=== PATIENT | female | born 1990 | race African-American/Black ===

== ENCOUNTER 2020-05-23 23:46 | Outpatient (CLI) | payer SELFPAY ==
[2020-05-24 00:40] LABS: APPEARANCE,URINE CLOUDY; BILIRUBIN,URINE NEGATIVE (NEGATIVE); COLOR,URINE YELLOW; GLUCOSE, URINE NEGATIVE (NEGATIVE); KETONES,URINE NEGATIVE (NEGATIVE); LEUKOCYTE ESTERASE,URINE LARGE (NEGATIVE); NITRITE,URINE POSITIVE (NEGATIVE); PROTEIN,URINE NEGATIVE (NEGATIVE); URINE SPECIFIC GRAVITY 1.011
[2020-05-24 00:45] LABS: URINE AMPHETAMINES SCREEN NEGATIVE; URINE BARBITURATES SCREEN NEGATIVE; URINE BENZODIAZEPINES SCREEN NEGATIVE; URINE COCAINE SCREEN NEGATIVE; URINE MARIJUANA (THC) SCREEN NEGATIVE; URINE METHADONE SCREEN NEGATIVE; URINE PHENCYCLIDINE SCREEN NEGATIVE
--- NOTE | 2020-05-24 00:56 | RADIOLOGY REPORT (SQ) ---
Ultrasound OB limited on 05/24/2020 at 12:40 AM CLINICAL INDICATION: , spotting, evaluate cervical length COMPARISON: None FINDINGS: Limited sonographic imaging is performed throughout the pelvis by transabdominal approach only, both transverse and sagittal images are obtained. Cervical length measures approximately 3.3 cm and the cervix is closed. Single living intrauterine fetus is noted in cephalic presentation. Placenta is anterior in location with no evidence of placenta previa or abruption. Positive cardiac activity is noted with a heart rate of 157 bpm. Normal amount of amniotic fluid is noted with maximum vertical pocket measuring 4.2 cm and the amniotic fluid index measuring 14 cm. No gross abnormality is noted on limited imaging. measurements for dates were not performed. IMPRESSION: Single living intrauterine fetus in cephalic presentation with no acute abnormality noted.
[2020-05-24] MEDS ORDERED: CEFTRIAXONE INJ 1000 MG VIAL IM ONE (01:22)
[2020-05-24] MEDS ORDERED: LIDOCAINE 1% INJ-PF (10 MG/ML) 30 ML SDV IM ONE (01:22)
[2020-05-24] MEDS ORDERED: CEFTRIAXONE INJ 1000 MG VIAL ONE (01:30)
[2020-05-24] MEDS ORDERED: LIDOCAINE 1% INJ-PF (10 MG/ML) 30 ML SDV ONE (01:30)
== END 2020-05-24 02:24 | disposition home or self-care (01) ==
LOC: LC 23:46
PROVIDERS: ATTEND Obstetrics & Gynecology
DX: O46.92 Antepartum hemorrhage, unspecified, second trimester (principal); Z3A.20 20 weeks gestation of pregnancy
CPT/HCPCS: 86900; 86901; 36415; 86850; 81001; 80307; 76815; 59899; J2790; J3490; J0696

== ENCOUNTER 2020-08-22 15:46 | Emergency (ER) | payer MEDICAID ==
[2020-08-22 16:38] VITALS: BP 110/67
[2020-08-22] MEDS ORDERED: IPRATROPIUM/ALBUTEROL 0.5-2.5 MG/3 ML AMPUL NEB ONE (16:57)
--- NOTE | 2020-08-22 16:59 | ER Document Report ---
ED Respiratory Problem - General Chief Complaint: Shortness Of Breath Stated Complaint: SHORTNESS OF BREATH Time Seen by Provider: 08/22/20 16:24 Primary Care Provider: SURINDER DONG MD [ACTIVE STAFF] - Follow up as needed Mode of Arrival: Ambulatory Information source: Patient Notes: Patient presents with a 4-day history of cough, sneezing and congestion. Gladys ent states that multiple contacts in her household are sick as well. Patient states that her child was exposed to someone who was positive for Covid and her entire family is getting Covid tested tomorrow. Patient is currently 34 weeks G4, P3. Patient denies any fever. Patient denies any urinary symptoms. Patient denies any vaginal bleeding or discharge. Patient does complain of some cough and shortness of breath. - HPI Patient complains to provider of: Cough, Short of breath. No: Asthma Onset: Other - 4 days Duration: Worse/persistent Pain Level: Denies Context: denies: Hx asthma, Recent long distance trvl, Recent immobilization, Recent surgery, Smoker Cough: Nonproductive Associated symptoms: Congestion, Cough, Short of breath, Wheezing. denies: Chest pain/discomfort, Fever Similar symptoms previously: No Recently seen / treated by doctor: No - Related Data Allergies/Adverse Reactions: No Known Allergies Allergy (Verified 08/22/20 16:30) Past Medical History - General Information source: Patient - Social History Smoking Status: Former Smoker - Quit a few months ago Frequency of alcohol use: None Drug Abuse: None Occupation: None Lives with: Family Family History: Reviewed & Not Pertinent Patient has homicidal ideation: No - Medical History Medical History: Negative Surgical Hx: Negative Review of Systems - Review of Systems Constitutional: No symptoms reported. denies: Fever EENT: Nose congestion, Nose discharge, Throat pain Cardiovascular: No symptoms reported. denies: Chest pain, Palpitations Respiratory: Cough, Short of breath, Wheezing. denies: Hurts to breathe, Hemoptysis Gastrointestinal: No symptoms reported. denies: Abdominal pain, Diarrhea, Nausea, Vomiting Genitourinary: No symptoms reported. denies: Dysuria, Flank pain Female Genitourinary: . denies: Vaginal discharge, Vaginal bleeding Musculoskeletal: No symptoms reported. denies: Back pain, Leg swelling Skin: No symptoms reported Hematologic/Lymphatic: No symptoms reported Neurological/Psychological: No symptoms reported. denies: Headaches Physical Exam - Vital signs Vitals: Temp Pulse Resp BP Pulse Ox 98.6 F 105 H 20 110/67 100 08/22/20 16:30 08/22/20 16:30 08/22/20 16:30 08/22/20 16:30 08/22/20 16:30 - General General appearance: Appears well, Alert In distress: None - HEENT Head: Normocephalic, Atraumatic Eyes: Normal Conjunctiva: Normal Ears: Normal External canal: Normal Nasal: Clear rhinorrhea Mouth/Lips: Normal Mucous membranes: Normal. No: Dry Pharynx: Erythema. No: Exudate Neck: Normal, Supple. No: Lymphadenopathy, Meningismus - Respiratory Respiratory status: Tachypnea Chest status: Nontender Breath sounds: Nonproductive cough, Wheezing Chest palpation: Normal - Cardiovascular Rhythm: Tachycardia Heart sounds: S1 appreciated, S2 appreciated - Abdominal Inspection: Gravid female - Back Back: Normal, Nontender. No: CVA tenderness - Extremities General upper extremity: Normal inspection, Normal ROM General lower extremity: Normal inspection, Normal ROM - Neurological Neuro grossly intact: Yes Cognition: Normal [place] Coma Scale Eye Opening: Spontaneous [place] Coma Scale Verbal: Oriented [place] Coma Scale Motor: Obeys Commands Manny Coma Scale Total: 15 - Psychological Associated symptoms: Normal affect, Normal mood - Skin Skin Temperature: Warm Skin Moisture: Dry Skin Color: Normal Course - Re-evaluation Re-evalutation: 08/22/20 18:21 Patient reports that she is breathing much easier and she feels better after the breathing treatment at this time. Wheezing has completely resolved at this time. Patient mildly tachycardic with a heart rate of 102 with pulse ox of 100% at this time. Chest x-ray reviewed, no pneumonia noted, patient's rapid strep and rapid flu test both are negative. Covid test is pending at this time. Patient denies any history of asthma. Patient does report that entire household is sick with similar upper respiratory symptoms and are going tomorrow to be Covid tested. Consulted with Dr. Dong who is on-call for OB regarding patient presentation and plan of care at this time. She agrees with plan for steroids as well as inhaled bronchodilator. Discussed choice of steroid, she does state that Decadron would be okay at this point in her as she is not in her first trimester. 08/22/20 18:23 The patient was evaluated during the global Covid 19 pandemic, and that diagnosis was suspected/considered upon their initial presentation. Their evaluation, treatment and testing was consistent with current guidelines for patients who present with complaints or symptoms that may be related to Covid 19. Patient presents with upper respiratory symptoms worrisome for possible Covid 19. Patient does not have emergency worrying symptoms such as difficulty breathing, shortness of breath, chest pain, pressure, confusion or cyanosis. Patient appears suitable for discharge as they are not of an advanced age, do not have any chronic medical conditions such as diabetes, CAD, immune deficiency, chronic lung disease or chronic kidney disease. Patient is nontoxic in appearance. Good return precautions have been discussed with patient, patient verbalized understanding and is agreeable with discharge plan of care at this time. - Vital Signs Vital signs: Temp Pulse Resp BP Pulse Ox 98.6 F 105 H 20 110/67 100 08/22/20 16:30 08/22/20 16:30 08/22/20 16:30 08/22/20 16:30 08/22/20 16:30 - Laboratory Laboratory results interpreted by me: Labs- All tests 24 hr 08/22/20 08/22/20 17:06 17:06 Influenza A (Rapid) NEGATIVE Influenza B (Rapid) NEGATIVE Group A Strep Rapid NEGATIVE - Diagnostic Test Radiology reviewed: Image reviewed, Reports reviewed Discharge - Discharge Clinical Impression: Encounter for screening laboratory testing for COVID-19 virus, Wheezing Upper respiratory infection Qualifiers: URI type: unspecified URI Qualified Code(s): J06.9 - Acute upper respiratory infection, unspecified Condition: Stable Disposition: HOME, SELF-CARE Instructions: COVID-19 Guidance for Persons Under Investigation, Inhaled Bronchodilators ([facility]), Upper Respiratory Illness ([facility]) Additional Instructions: Return immediately for any new or worsening symptoms: Shortness of breath, chest pain, fever, difficulty breathing, or any concerning symptoms Followup with your primary care provider, call tomorrow to make a followup appointment Covid test is pending, home quarantine as per instructions Prescriptions: Dexamethasone [Decadron] 6 mg PO DAILY #7 tablet Inhaler,Assist Device,Accesory [Optichamber] 1 each MC Q4 PRN #1 each PRN Reason: Albuterol Sulfate [Proair Hfa Inhalation Aerosol 8.5 gm Mdi] 2 puff IH Q4 PRN #1 mdi PRN Reason: Referrals: SURINDER DONG MD [ACTIVE STAFF] - Follow up as needed
[2020-08-22 18:02] LABS: A TYPE INFLUENZA AG NEGATIVE (NEGATIVE); B INFLUENZA AG NEGATIVE (NEGATIVE)
--- NOTE | 2020-08-22 18:07 | RADIOLOGY REPORT (SQ) ---
EXAM DESCRIPTION: CHEST SINGLE VIEW IMAGES COMPLETED DATE/TIME: 08/22/2020 5:22 pm REASON FOR STUDY: cough, sob COMPARISON: None. EXAM PARAMETERS: NUMBER OF VIEWS: One view. TECHNIQUE: Single frontal radiographic view of the chest acquired. RADIATION DOSE: NA LIMITATIONS: None. FINDINGS: LUNGS AND PLEURA: No opacities, masses or pneumothorax. No pleural effusion. MEDIASTINUM AND HILAR STRUCTURES: No masses. Contour normal. HEART AND VASCULAR STRUCTURES: Heart normal in size. Normal vasculature. BONES: No acute findings. HARDWARE: None in the chest. OTHER: No other significant finding. IMPRESSION: NO ACUTE RADIOGRAPHIC FINDING IN THE CHEST. TECHNICAL DOCUMENTATION: JOB ID: [id number] 2010 [employer]- All Rights Reserved Reading location - IP/workstation name: [email or web address]
[2020-08-22] MEDS ORDERED: DEXAMETHASONE 4 MG TABLET PO ONE (18:28)
== END 2020-08-22 19:11 | disposition home or self-care (01) ==
LOC: ER 15:46
DX: J06.9 Acute upper respiratory infection, unspecified (principal); R06.02 Shortness of breath; Z20.828 Contact with and (suspected) exposure to other viral communicable diseases
CPT/HCPCS: 94640; 99284; 87070; 87880; 87635; 87804; 71045; J3490; C9803; J8540

== ENCOUNTER 2020-09-28 01:03 | Inpatient (IN) | payer MEDICAID ==
[2020-09-28] MEDS ORDERED: RINGERS SOLUTION,LACTATED 1,000 ML IV PRN (01:25)
[2020-09-28 01:29] LABS: APPEARANCE,URINE CLEAR; BILIRUBIN,URINE NEGATIVE (NEGATIVE); COLOR,URINE STRAW; GLUCOSE, URINE NEGATIVE (NEGATIVE); KETONES,URINE NEGATIVE (NEGATIVE); LEUKOCYTE ESTERASE,URINE NEGATIVE (NEGATIVE); NITRITE,URINE NEGATIVE (NEGATIVE); PROTEIN,URINE NEGATIVE (NEGATIVE); URINE SPECIFIC GRAVITY 1.006; UROBILINOGEN,URINE NEGATIVE mg/dL (<2.0)
[2020-09-28] MEDS ORDERED: OXYTOCIN/0.9 % SODIUM CHLORIDE 30 UNIT/500 ML RTUINJ ONE (01:32)
[2020-09-28] MEDS ORDERED: OXYTOCIN 10 UNIT/ML VIAL ONE (01:32)
[2020-09-28] MEDS ORDERED: LIDOCAINE 1% INJ-PF (10 MG/ML) 30 ML SDV ONE (01:32)
[2020-09-28] MEDS ORDERED: MISOPROSTOL 0.2 MG TABLET ONE (01:32)
[2020-09-28 01:48] LABS: ABSOLUTE EOSINOPHILS # (AUTO) 0.1 10^3/uL (0.0-0.6); ABSOLUTE LYMPHOCYTES (AUTO) 2.3 10^3/uL (0.5-4.7); ABSOLUTE MONOCYTES (AUTO) 0.8 10^3/uL (0.1-1.4); ABSOLUTE NEUT (AUTO) 6.5 10^3/uL (1.7-8.2); BASOPHILS % (AUTO) 0.2 % (0-2); EOSINOPHILS % (AUTO) 1.3 % (0-6); HEMATOCRIT 28.3 % (36.0-47.0); HEMOGLOBIN 9.6 g/dL (12.0-15.5); LYMPHOCYTES % (AUTO) 24.1 % (13-45); MEAN CORPUSCULAR HEMOGLOBIN 27.9 pg (27.0-33.4); MEAN CORPUSCULAR VOLUME 82 fl (80-97); MONOCYTES % (AUTO) 7.8 % (3-13); PLATELET COUNT 213 10^3/uL (150-450); RED BLOOD COUNT 3.45 10^6/uL (3.72-5.28); RED CELL DISTRIBUTION WIDTH 13.5 % (11.5-14.0); SEGMENTED NEUTROPHILS % (AUTO) 66.6 % (42-78); TOTAL CELLS COUNTED % (AUTO) 100 %; WHITE BLOOD COUNT 9.7 10^3/uL (4.0-10.5)
[2020-09-28 02:49] LABS: URINE AMPHETAMINES SCREEN NEGATIVE; URINE BARBITURATES SCREEN NEGATIVE; URINE BENZODIAZEPINES SCREEN NEGATIVE; URINE COCAINE SCREEN NEGATIVE; URINE MARIJUANA (THC) SCREEN NEGATIVE; URINE METHADONE SCREEN NEGATIVE; URINE PHENCYCLIDINE SCREEN NEGATIVE
[2020-09-28] MEDS ORDERED: ROPIVACAINE HCL 0.2% INJ/PF (2 MG/ML) 20 ML SDV ONE (03:02)
[2020-09-28] MEDS ORDERED: FENTANYL/BUPIVACAINE/NS/PF 300 MCG/150 ML RTUINJ EPI ONE (03:02)
[2020-09-28] MEDS ORDERED: EPHEDRINE SULFATE INJ 50 MG/1 ML AMPULE ONE (03:02)
[2020-09-28] MEDS ORDERED: GLYCERIN/WITCH HAZEL LEAF 1 EACH MED..WIPE TP PRN (04:29)
[2020-09-28] MEDS ORDERED: OXYTOCIN/0.9 % SODIUM CHLORIDE 30 UNIT/500 ML RTUINJ IV PRN (04:29)
[2020-09-28] MEDS ORDERED: MAG HYDROX/AL HYDROX/SIMETH SUSP 30 ML UDCUP PO PRN (04:29)
[2020-09-28] MEDS ORDERED: DIPH/PERTUSS(ACELL)/TETANUS VAC/PF 0.5 ML SYR (>=10YO) IM PRN (04:29)
[2020-09-28] MEDS ORDERED: ACETAMINOPHEN 325 MG TABLET PO PRN (04:29)
[2020-09-28] MEDS ORDERED: BENZOCAINE/MENTHOL AEROSOL SPRAY 56 ML TOP PRN (04:29)
[2020-09-28] MEDS ORDERED: MEASLES,MUMPS&RUBELLA VACC/PF 0.5 ML VIAL SUBCUT PRN (04:29)
[2020-09-28] MEDS ORDERED: DIBUCAINE 1% OINTMENT 28 GM TP PRN (04:29)
[2020-09-28] MEDS ORDERED: PSEUDOEPHEDRINE HCL 30 MG TABLET PO PRN (04:29)
[2020-09-28] MEDS ORDERED: MAGNESIUM HYDROXIDE SUSP 30 ML UDCUP PO PRN (04:29)
[2020-09-28] MEDS ORDERED: VARICELLA VACC/PF (1350 UNIT/0.5 ML) 0.5 ML VIAL SUBCUT PRN (04:29)
[2020-09-28] MEDS ORDERED: ACETAMINOPHEN 650 MG SUPP.RECT PR PRN (04:29)
[2020-09-28] MEDS ORDERED: ZOLPIDEM TARTRATE 5 MG TABLET PO PRN (04:29)
[2020-09-28] MEDS ORDERED: ACETAMINOPHEN WITH CODEINE #3 TABLET PO PRN ×2 (04:29)
[2020-09-28] MEDS ORDERED: DIPHENHYDRAMINE HCL 25 MG CAPSULE PO PRN (04:29)
[2020-09-28] MEDS ORDERED: IBUPROFEN 800 MG TABLET ONE (05:52)
[2020-09-28] MEDS: IBUPROFEN 800 MG TABLET PO SCH ×3 (05:54→21:59)
--- NOTE | 2020-09-28 06:44 | Delivery Summary ---
Del Sum A-C Datetime Report Generated by CPN: 09/28/2020 06:43 DELIVERY PERSONNEL DELIVERY PERSONNEL: [id number] Delivery Doctor:: Patricia Dowling MD Labor and Delivery Nurse:: Mattie Gaffney RNfire control system installer Nurse:: Jossie Gibson RN Ski Technician/HYDRO PLANT OPERATOR: Tabatha Bowersberg, VISUAL EDUCATOR MATERNAL INFORMATION Delivery Anesthesia: Epidural Medications After Delivery: Pitocin 30 Units in 500ml NS/D5W Estimated Blood Loss (ml): 100 Delivery QBL: 100 Maternal Complications: None LABOR SUMMARY EDC: 10/06/2020 00:00 No. Babies in Womb: 1 Attempted: No Labor Anesthesia: Epidural LABOR INFORMATION Reason for Induction: Not Applicable Onset of Labor: 09/27/2020 23:00 Complete Dilatation: 09/28/2020 03:47 Oxytocin: N/A Group B Beta Strep: Negative Steroids Given: None Reason Steroids Not Administered: Not Applicable MEMBRANES Membranes Rupture Method: Spontaneous Rupture of Membranes: 09/27/2020 23:00 Length of Rupture (hr): 5.33 Amniotic Fluid Color: Clear Amniotic Fluid Amount: Moderate Amniotic Fluid Odor: Normal STAGES OF LABOR Stage 1 hr: 4 Stage 1 min: 47 Stage 2 hr: 0 Stage 2 min: 33 Stage 3 hr: 0 Stage 3 min: 4 Total Time in Labor hr: 5 Total Time in Labor min: 24 VAGINAL DELIVERY Episiotomy: None Laceration #1: None Laceration Repair: Not Applicable Sponge Count Correct: Yes Sharps Count Correct: Yes CSECTION DELIVERY Primary Indication: N/A Secondary Indication: N/A CSection Incidence: N/A Labor: N/A Elective: N/A CSection Incision: N/A BABY A INFORMATION Infant Delivery Date/Time: 09/28/2020 04:20 Method of Delivery: Vaginal Nurse Controlled Delivery: No Born in Route : No : N/A Forceps: N/A Vacuum Extraction: N/A Shoulder Dystocia : No PRESENTATION/POSITION BABY A Presentation: Cephalic Cephalic Presentation: Vertex Vertex Position: Left Occipital Anterior Breech Presentation: N/A PLACENTA INFORMATION BABY A Placenta Delivery Time : 09/28/2020 04:24 Placenta Method of Delivery: Spontaneous Placenta Status: Delivered SCORES BABY A Heart Rate 1 min: >100 bpm Resp Effort 1 min: Good Cry Reflex Irritability 1 min: Cough or Sneeze or Pulls Away Muscle Tone 1 min: Active Motion Color 1 min: Body [place], Extremities Blue Resuscitation Effort 1 min: Tactile Stimulation SCORE 1 MIN: 9 Heart Rate 5 min: >100 bpm Resp Effort 5 min: Good Cry Reflex Irritability 5 min: Cough or Sneeze or Pulls Away Muscle Tone 5 min: Active Motion Color 5 min: Body [place], Extremities Blue Resuscitation Effort 5 min: Tactile Stimulation SCORE 5 MIN: 9 INFANT INFORMATION BABY A Gestational Age at Delivery: 38.6 Gestational Status: Early Term- 37- 38.6 Weeks Infant Outcome : Liveborn Condition : Stable Sex: Male IDENTIFICATION BABY A Infant Verification Date/Time: 09/28/2020 04:42 ID Band Number: [id number] Mother's Name Verified: Yes Infant RN Verifying Infant: Reena Gibson, RN/ ETomasz Gaffney, RN WEIGHT/LENGTH BABY A Infant Birthweight (gm): 2890 Infant Weight (lb): 6 Weight (oz): 6 Infant Length (in): 19.00 Infant Length (cm): 48.26 CORD INFORMATION BABY A No. Cord Vessels: 3 Nuchal Cord : N/A Cord Blood Taken: Yes-For Eval (Mom's Blood Type - or O+) Suction: None ASSESSMENT BABY A Skin to Skin: Yes BABY B INFORMATION : N/A SIGNATURES Signature: with User ID: [email or web address]
--- NOTE | 2020-09-28 06:44 | Birth Certificate Data ---
Cert Data Datetime Report Generated by CPN: 09/28/2020 06:43 CERTIFICATE DATA Delivery Provider: Patricia Dowling MD (05/24/2020 00:29:Patricia Dowling MD (AND)) 48a. Number of Prev Live Births: 3 (05/24/2020 00:29:Liz Bullock RN) 48d. Date of Last Live : 11/19/2019 00:00 (05/24/2020 00:29:Liz Bullock RN) 48e. Losses: 0 (05/24/2020 00:29:Liz Bullock RN) RISK FACTORS IN THIS 49a. Diabetes: No (05/24/2020 00:29:Mattie Gaffney RN) 49b. Hypertension: No (05/24/2020 00:29:Mattie Gaffney RN) 49c. Previous Births: 0 (05/24/2020 00:29:Liz Bullock RN) 49d. Stillborns: No (05/24/2020 00:29:Mattie Gaffney RN) 49d. IUGR: No (05/24/2020 00:29:Mattie Gaffney RN) 49e. Infertility Treatment: No (05/24/2020 00:29:Mattie Gaffney RN) 49f. Previous Cesareans: 0 (05/24/2020 00:29:Liz Bullock RN) Mother's Height 50b. Height Inches: 69 (09/28/2020 06:34:QS system process) Mother's Weight 51b. Weight at Delivery (lbs): 180 (09/28/2020 06:34:QS system process) Infections Present/Treated 53a. Gonorrhea: No (05/24/2020 00:29:Mattie Gaffney RN) Results this Hospital Visit : Negative (05/24/2020 00:29:Jossie Gibson RN) 53b. Syphilis: No (05/24/2020 00:29:Mattie Gaffney RN) 53c. Chlamydia: No (05/24/2020 00:29:Mattie Gaffney RN) Results this Hospital Visit: Negative (05/24/2020 00:29:Jossie Gibson RN) 53d. Hepatitis B: No (05/24/2020 00:29:Mattie Gaffney RN) Results this Hospital Visit: Negative (05/24/2020 00:29:Jossie Gibson RN) 53e. Hepatitis C: Negative (05/24/2020 00:29:Jossie Gibson RN) 53h. Mother Tested for HBsAG: Yes (05/24/2020 00:29:Jossie Gibson RN) 53i. Date Tested: 06/24/2020 00:00 (05/24/2020 00:29:Jossie Gibson RN) 53j. Test Result: Negative (05/24/2020 00:29:Jossie Gibson RN) Cigarette Smoking Cigarette Smoking: Current Everyday Smoker. [id number] (05/24/2020 00:29:Liz Bullock RN) 55a. 3 Months Before Preg - Ci (05/24/2020 00:29:Liz Bullock RN) 55b. 1st Trimester of Preg- Ci (05/24/2020 00:29:Liz Bullock RN) 55c. 2nd Trimester of Preg- Ci (05/24/2020 00:29:Liz Bullock RN) 55d. 3rd Trimester of Preg- Ci (05/24/2020 00:29:Liz Bullock RN) Onset of Labor 56a. PROM >12 Hrs: 5.33 (09/28/2020 01:30:QS system process) 56b. Precipitous Labor <3 Hrs: 5 (05/24/2020 00:29:QS system process) 56c. Prolonged Labor > 20 Hrs: 5 (05/24/2020 00:29:QS system process) 57a. Induction of Labor: N/A (05/24/2020 00:29:Mattie Gaffney RN) 57c. Non-Vertex Presentation A: Vertex (05/24/2020 00:29:Mattie Gaffney RN) 57d. Steroids - Lung Mat: None (05/24/2020 00:29:Mattie Gaffney RN) 57d. Steroids - Lung Mat: Not Applicable (05/24/2020 00:29:Mattie Gaffney RN) 57f. Mat [place] or Temp >100.4: 98.4 (05/24/2020 00:29:Jossie Gibson RN) 57g. Moderate/Heavy Meconium: Clear (09/28/2020 01:30:Mattie Gaffney RN) 57h. Intolerance of Labor: N/A (05/24/2020 00:29:Mattie Gaffney RN) : N/A (05/24/2020 00:29:Mattie Gaffney RN) 57i. Epidural/Spinal Anesthesia: Epidural (05/24/2020 00:29:Mattie Gaffney RN) Method of Delivery 58a. Forceps - Unsuccessful A: N/A (05/24/2020 00:29:Mattie Gaffney RN) 58b. Vacuum - Unsuccessful A: N/A (05/24/2020 00:29:Mattie Gaffney RN) 58c. Presentation at 58c. Presentation at - A : Vertex (05/24/2020 00:29:Mattie Gaffney RN) 58c. Presentation at - A : N/A (05/24/2020 00:29:Mattie Gaffney RN) 58c. Presentation at - A : Cephalic (09/28/2020 01:18:Mattie Gaffney RN) Final Route and Method of Del 58d. Baby A Route/Delivery: Vaginal (09/28/2020 04:20:Mattie Gaffney RN) 58e. Trial of Labor Attempted: No (05/24/2020 00:29:Mattie Gaffney RN) 58e. Trial of Labor Attempted A: N/A (05/24/2020 00:29:Mattie Gaffney RN) 58e. Trial of Labor Attempted B: N/A (05/24/2020 00:29:Mattie Gaffney RN) Maternal Morbidity 59b. 3rd or 4th Degree Lacs: None (05/24/2020 00:29:Patricia Dowling MD (ANDDO)) Birthweight Baby A: 2890 (05/24/2020 00:29:Jossie Gibson RN) 60a. Pounds : 6 (05/24/2020 00:29:QS system process) 60b. Ounces: 6 (05/24/2020 00:29:QS system process) 61. GA at Delivery Baby A: 38.6 (05/24/2020 00:29:Mattie Gaffney RN) : Early Term- 37- 38.6 Weeks (05/24/2020 00:29:QS system process) 62a. 5 Minute Baby A: 9 (05/24/2020 00:29:QS system process)
[2020-09-28] MEDS: SENNOSIDES/DOCUSATE 8.6-50 MG 1 EACH TABLET PO SCH (09:21)
[2020-09-28] MEDS: FERROUS SULFATE 325 MG TABLET PO SCH ×2 (09:22→17:06)
[2020-09-28] MEDS: DOCUSATE SODIUM 100 MG CAPSULE PO SCH ×2 (09:22→17:06)
[2020-09-28] MEDS: PRENATAL VITAMIN W DHA CAPSULE PO SCH (09:22)
[2020-09-28] MEDS: FAMOTIDINE 20 MG TABLET PO PRN ×2 (09:37→19:02)
--- NOTE | 2020-09-28 09:38 | PDOC PROGRESS REPORT ---
Subjective-OB Progress Note for:: 09/28/20 Subjective: Pt delivered early this am. Doing well, bleeding is normal. No concerns. Physical Exam (OB) Vital Signs: Temp Pulse Resp BP Pulse Ox 98.2 F 76 16 119/76 100 09/28/20 07:37 09/28/20 07:37 09/28/20 07:37 09/28/20 07:37 09/28/20 07:37 Intake & Output 09/27/20 09/28/20 09/29/20 06:59 06:59 06:59 Intake Total 400 Balance 400 Weight 82.1 kg - General General Appearance: Appears well In distress: None - Maternal Morbidity 59. Maternal Morbidity (serious complications experinced by the mother associated with labor and delivery: None of the above - Lochia Lochia Amount: Small 10-25 ml Lochia Color: Rubra/Red Objective-Diagnostic Laboratory: 09/28/20 01:35 09/28/20 09/28/20 09/28/20 01:15 01:35 01:35 WBC 9.7 RBC 3.45 L Hgb 9.6 L Hct 28.3 L MCV 82 MCH 27.9 MCHC 34.0 RDW 13.5 Plt Count 213 Seg Neutrophils % 66.6 Urine Color STRAW Urine Appearance CLEAR Urine pH 7.0 Ur Specific [place] 1.006 Urine Protein NEGATIVE Urine Glucose (UA) NEGATIVE Urine Ketones NEGATIVE Urine Blood NEGATIVE Urine Nitrite NEGATIVE Ur Leukocyte Esterase NEGATIVE Blood Type O NEGATIVE Antibody Screen POSITIVE Assessment and Plan(PN) - Assessment and Plan (1) SROM (spontaneous rupture of membranes) Is this a current diagnosis for this admission?: Yes (2) (spontaneous vaginal delivery) Is this a current diagnosis for this admission?: Yes - Time Spent with Patient Time with patient: Less than 15 minutes Medications reviewed and adjusted accordingly: Yes - Disposition Anticipated Discharge Disposition: Home, Self Care Anticipated Discharge Timeframe: within 24 hours
[2020-09-29] MEDS: IBUPROFEN 800 MG TABLET PO SCH ×2 (05:55→15:17)
[2020-09-29 07:18] LABS: MEAN CORPUSCULAR HEMOGLOBIN 27.8 pg (27.0-33.4); MEAN CORPUSCULAR HGB CONC 34.4 g/dL (32.0-36.0); MEAN CORPUSCULAR VOLUME 81 fl (80-97); PLATELET COUNT 198 10^3/uL (150-450); RED BLOOD COUNT 3.23 10^6/uL (3.72-5.28); RED CELL DISTRIBUTION WIDTH 13.7 % (11.5-14.0); WHITE BLOOD COUNT 11.2 10^3/uL (4.0-10.5)
[2020-09-29 07:57] VITALS: BP 118/76
[2020-09-29] MEDS: DOCUSATE SODIUM 100 MG CAPSULE PO SCH (09:08)
[2020-09-29] MEDS: FERROUS SULFATE 325 MG TABLET PO SCH (09:08)
[2020-09-29] MEDS: PRENATAL VITAMIN W DHA CAPSULE PO SCH (09:08)
[2020-09-29] MEDS: FAMOTIDINE 20 MG TABLET PO PRN (09:08)
[2020-09-29] MEDS: SENNOSIDES/DOCUSATE 8.6-50 MG 1 EACH TABLET PO SCH (09:08)
--- NOTE | 2020-09-29 11:05 | PDOC PROGRESS REPORT ---
Subjective-OB Progress Note for:: 09/29/20 Subjective: Doing well, no c/o, would like to go home today if baby can go, , RH neg, will need Rhogam Physical Exam (OB) Vital Signs: Temp Pulse Resp BP Pulse Ox 97.7 F 65 16 118/76 100 09/29/20 07:55 09/29/20 07:55 09/29/20 07:55 09/29/20 07:55 09/29/20 07:55 Intake & Output 09/28/20 09/29/20 09/30/20 06:59 06:59 06:59 Intake Total 900 400 Balance 900 400 Weight 82.1 kg - PIH/Pre-Eclampsia Clonus: Negative Headache: Absent Epigastric Pain: No Visual Changes: No - Maternal Morbidity 59. Maternal Morbidity (serious complications experinced by the mother associated with labor and delivery: None of the above - Lochia Lochia Amount: Small 10-25 ml Lochia Color: Rubra/Red - Abdomen Description: Soft, Round Hernia Present: No Fundal Description: Firm, Midline Fundal Height: u/u - u/2 Objective-Diagnostic Laboratory: 09/29/20 06:43 09/29/20 09/29/20 06:43 06:43 WBC 11.2 H RBC 3.23 L Hgb 9.0 L Hct 26.0 L MCV 81 MCH 27.8 MCHC 34.4 RDW 13.7 Plt Count 198 Blood Type O NEGATIVE Assessment and Plan(PN) - Assessment and Plan (1) Rh negative status during Qualifiers: Trimester: first trimester Qualified Code(s): O26.891 - Other specified related conditions, first trimester; Z67.91 - Unspecified blood type, Rh negative Is this a current diagnosis for this admission?: Yes (2) SROM (spontaneous rupture of membranes) Is this a current diagnosis for this admission?: Yes (3) (spontaneous vaginal delivery) Is this a current diagnosis for this admission?: Yes - Time Spent with Patient Time with patient: Less than 15 minutes Medications reviewed and adjusted accordingly: Yes - Disposition Anticipated Discharge Disposition: Home, Self Care Anticipated Discharge Timeframe: within 24 hours
--- NOTE | 2020-09-29 12:37 | PDOC PROGRESS REPORT ---
Subjective-OB Progress Note for:: 09/29/20 Subjective: baby discharged, will discharge mother Physical Exam (OB) Vital Signs: Temp Pulse Resp BP Pulse Ox 97.7 F 65 16 118/76 100 09/29/20 07:55 09/29/20 07:55 09/29/20 07:55 09/29/20 07:55 09/29/20 07:55 Intake & Output 09/28/20 09/29/20 09/30/20 06:59 06:59 06:59 Intake Total 900 400 Balance 900 400 Weight 82.1 kg - PIH/Pre-Eclampsia Clonus: Negative Headache: Absent Epigastric Pain: No Visual Changes: No - Maternal Morbidity 59. Maternal Morbidity (serious complications experinced by the mother associated with labor and delivery: None of the above - Lochia Lochia Amount: Small 10-25 ml Lochia Color: Rubra/Red - Abdomen Description: Soft, Round Hernia Present: No Fundal Description: Firm, Midline Fundal Height: u/u - u/2 Objective-Diagnostic Laboratory: 09/29/20 06:43 09/29/20 09/29/20 06:43 06:43 WBC 11.2 H RBC 3.23 L Hgb 9.0 L Hct 26.0 L MCV 81 MCH 27.8 MCHC 34.4 RDW 13.7 Plt Count 198 Blood Type O NEGATIVE Assessment and Plan(PN) - Assessment and Plan (1) Rh negative status during Qualifiers: Trimester: first trimester Qualified Code(s): O26.891 - Other specified related conditions, first trimester; Z67.91 - Unspecified blood type, Rh negative Is this a current diagnosis for this admission?: Yes (2) SROM (spontaneous rupture of membranes) Is this a current diagnosis for this admission?: Yes (3) (spontaneous vaginal delivery) Is this a current diagnosis for this admission?: Yes - Time Spent with Patient Medications reviewed and adjusted accordingly: Yes - Disposition Anticipated Discharge Disposition: Home, Self Care Anticipated Discharge Timeframe: within 24 hours
--- NOTE | 2020-09-29 12:42 | PDOC DISCHARGE SUMMARY ---
Impression - Admit/DC Date/PCP Admission Date/Primary Care Provider: 09/28/20 01:26 PARDEEP SARGENT MD Discharge Date: 09/29/20 - Discharge Diagnosis (1) Rh negative status during Is this a current diagnosis for this admission?: Yes (2) SROM (spontaneous rupture of membranes) Is this a current diagnosis for this admission?: Yes (3) (spontaneous vaginal delivery) Is this a current diagnosis for this admission?: Yes - Additional Information Resuscitation Status: Full Code Discharge Diet: Regular Discharge Activity: Balance Activity w/Rest, Pelvic Rest Referrals: PARDEEP SARGENT MD [Primary Care Provider] - Home Medications: Prenat 115/Iron Fum/Folic/Dss [ 19 Tablet] 1 tab PO DAILY 09/28/20 HPI Gestational Age: 38.6 Reason(s) for Admission: Onset of Labor Procedures: Ultrasound Intrapartum Procedure(s): Spontaneous Vaginal Delivery Hospital Course Hospital Course: routine 59. Maternal Morbidity (serious complications experinced by the mother associated with labor and delivery: None of the above Results Laboratory Results: WBC 11.2 10^3/uL (4.0-10.5) H 09/29/20 06:43 RBC 3.23 10^6/uL (3.72-5.28) L 09/29/20 06:43 Hgb 9.0 g/dL (12.0-15.5) L 09/29/20 06:43 Hct 26.0 % (36.0-47.0) L 09/29/20 06:43 MCV 81 fl (80-97) 09/29/20 06:43 MCH 27.8 pg (27.0-33.4) 09/29/20 06:43 MCHC 34.4 g/dL (32.0-36.0) 09/29/20 06:43 RDW 13.7 % (11.5-14.0) 09/29/20 06:43 Plt Count 198 10^3/uL (150-450) 09/29/20 06:43 Lymph % (Auto) 24.1 % (13-45) 09/28/20 01:35 [place] % (Auto) 7.8 % (3-13) 09/28/20 01:35 Eos % (Auto) 1.3 % (0-6) 09/28/20 01:35 Baso % (Auto) 0.2 % (0-2) 09/28/20 01:35 Absolute Neuts (auto) 6.5 10^3/uL (1.7-8.2) 09/28/20 01:35 Absolute Lymphs (auto) 2.3 10^3/uL (0.5-4.7) 09/28/20 01:35 Absolute Monos (auto) 0.8 10^3/uL (0.1-1.4) 09/28/20 01:35 Absolute Eos (auto) 0.1 10^3/uL (0.0-0.6) 09/28/20 01:35 Absolute Basos (auto) 0.0 10^3/uL (0.0-0.2) 09/28/20 01:35 Seg Neutrophils % 66.6 % (42-78) 09/28/20 01:35 Urine Color STRAW 09/28/20 01:15 Urine Appearance CLEAR 09/28/20 01:15 Urine pH 7.0 (5.0-9.0) 09/28/20 01:15 Ur Specific [place] 1.006 09/28/20 01:15 Urine Protein NEGATIVE mg/dL (NEGATIVE) 09/28/20 01:15 Urine Glucose (UA) NEGATIVE mg/dL (NEGATIVE) 09/28/20 01:15 Urine Ketones NEGATIVE mg/dL (NEGATIVE) 09/28/20 01:15 Urine Blood NEGATIVE (NEGATIVE) 09/28/20 01:15 Urine Nitrite NEGATIVE (NEGATIVE) 09/28/20 01:15 Urine Bilirubin NEGATIVE (NEGATIVE) 09/28/20 01:15 Urine Urobilinogen NEGATIVE mg/dL (<2.0) 09/28/20 01:15 Ur Leukocyte Esterase NEGATIVE (NEGATIVE) 09/28/20 01:15 Urine Ascorbic Acid NEGATIVE (NEGATIVE) 09/28/20 01:15 Urine Opiates Screen NEGATIVE 09/28/20 01:15 Urine Methadone Screen NEGATIVE 09/28/20 01:15 Ur Barbiturates Screen NEGATIVE 09/28/20 01:15 Ur Phencyclidine Scrn NEGATIVE 09/28/20 01:15 Ur Amphetamines Screen NEGATIVE 09/28/20 01:15 U Benzodiazepines Scrn NEGATIVE 09/28/20 01:15 Urine Cocaine Screen NEGATIVE 09/28/20 01:15 U Marijuana (THC) Screen NEGATIVE 09/28/20 01:15 RPR NONREACTIVE (NONREACTIVE) 09/28/20 01:35 Blood Type O NEGATIVE 09/29/20 06:43 Antibody Screen POSITIVE 09/28/20 01:35 Antibody Identification RHOGAM INDUCED ANTI-D 09/28/20 01:35 Screen NEGATIVE 09/29/20 06:43 Plan Health Concerns: routine Plan of Treatment: dc home, rev S&S to report Goals: no complications Time Spent: Less than 30 Minutes
== END 2020-09-29 15:33 | disposition home or self-care (01) | DRG 807 ==
LOC: LC 01:03 → LR 01:26 → 2S 06:30
PROVIDERS: ADMIT Obstetrics & Gynecology; ATTEND Obstetrics & Gynecology
PROC: 10E0XZZ Delivery of Products of Conception, External Approach (ICD-10-PCS; principal; 2020-09-28)
PROC: 3E0334Z Introduction of Serum, Toxoid and Vaccine into Peripheral Vein, Percutaneous Approach (ICD-10-PCS; 2020-09-29)
DX: O36.0930 Maternal care for other rhesus isoimmunization, third trimester, not applicable or unspecified (principal); Z37.0 Single live birth; O99.334 Smoking (tobacco) complicating childbirth; F17.210 Nicotine dependence, cigarettes, uncomplicated; Z3A.38 38 weeks gestation of pregnancy
CPT/HCPCS: 1967; 36415; 80307; 81005; 85025; 85027; 85461; 86592; 86850; 86870; 86900; 86901; J2590; J2790; J2795; J3010; J3490